=== PATIENT | male | born 1970 | race Caucasian/White ===

== ENCOUNTER 2020-08-04 10:20 | Emergency (ER) | payer MEDICAID ==
[~2020-08-04] VITALS: Ht 177.8 cm; Wt 68.2 kg
[~2020-08-04 10:20] MED LIST: ALBU8HFA PO
[2020-08-04 10:32] VITALS: BP 110/81
[2020-08-04] MEDS ORDERED: ketorolac trometh. 30mg/ml inj. IM ONE (11:15)
== END 2020-08-04 12:56 | disposition home or self-care (01) ==
LOC: ER 10:21
DX: M25.511 Pain in right shoulder (principal); M25.512 Pain in left shoulder; F17.200 Nicotine dependence, unspecified, uncomplicated; F12.10 Cannabis abuse, uncomplicated; Z59.0 Homelessness; W19.XXXA Unspecified fall, initial encounter; Y93.89 Activity, other specified; Y92.89 Other specified places as the place of occurrence of the external cause; Y99.8 Other external cause status
CPT/HCPCS: 73030; 73070; 73100; 73502; 96372; 99284; J1885

== ENCOUNTER 2020-12-25 10:07 | Emergency (ER) | payer MEDICAID ==
[~2020-12-25] VITALS: Ht 177.8 cm; Wt 65.8 kg
[2020-12-25 10:29] VITALS: BP 132/98
[2020-12-25] MEDS ORDERED: ceFAZolin 1gm IM kit IM ONE (11:05)
[2020-12-25] MEDS ORDERED: ketorolac trometh inj. 60 MG/2 ML VIAL IM ONE (11:05)
[2020-12-25] MEDS ORDERED: AMOX-580 PO (11:35)
[2020-12-25] MEDS ORDERED: SULF1TAB49 PO (11:35)
== END 2020-12-25 12:18 | disposition home or self-care (01) ==
LOC: ER 10:07
DX: L03.011 Cellulitis of right finger (principal); M79.641 Pain in right hand; F17.200 Nicotine dependence, unspecified, uncomplicated; F12.90 Cannabis use, unspecified, uncomplicated; Z72.89 Other problems related to lifestyle; Z59.0 Homelessness; Z98.890 Other specified postprocedural states; Z79.2 Long term (current) use of antibiotics
CPT/HCPCS: 73130; 96372; 99284; J0690; J1885

== ENCOUNTER 2021-07-09 17:09 | Emergency (ER) | payer MEDICAID ==
[~2021-07-09] VITALS: Ht 177.8 cm; Wt 85.0 kg
[2021-07-09] MEDS ORDERED: pantoprazole 40 MG vial IV ONE (17:25)
[2021-07-09] MEDS ORDERED: normal saline 1000ML IV soln IVB ONE (17:25)
[2021-07-09] MEDS ORDERED: LORazepam 2 mg/ml vial IV ONE (17:25)
[2021-07-09 17:52] LABS: HEMOGLOBIN 14.9 g/dl (14.0-17.9)
[2021-07-09 17:54] LABS: BASOPHILS # (AUTO) 0.1 X10'3 (0-0.2); BASOPHILS % (AUTO) 1.1 % (0-1); EOSINOPHILS # (AUTO) 0.3 X10'3 (0-0.9); EOSINOPHILS % (AUTO) 2.4 % (0-6); LYMPHOCYTES # (AUTO) 2.4 X10'3 (1.1-4.8); LYMPHOCYTES % (AUTO) 22.6 % (21-51); MEAN CORPUSCULAR HEMOGLOBIN 33.8 PG (27.0-31.0); MEAN CORPUSCULAR HGB CONC 34.7 g/dL (33.0-36.5); MEAN CORPUSCULAR VOLUME 97.3 FL (78-98); MEAN PLATELET VOLUME 7.5 FL (7.4-10.4); MONOCYTES # (AUTO) 0.9 X10'3 (0-0.9); MONOCYTES % (AUTO) 8.1 % (2-12); NEUTROPHILS # (AUTO) 6.9 X10'3 (1.8-7.7); NEUTROPHILS % (AUTO) 65.8 % (42-75); PLATELET COUNT 360 X10'3 (140-440); RED BLOOD COUNT 4.42 X10'6 (4.70-6.10); RED CELL DISTRIBUTION WIDTH 13.3 % (11.5-14.5); WHITE BLOOD COUNT 10.6 X10'3 (4.5-11.0)
[2021-07-09 18:04] LABS: ALANINE AMINOTRANSFERASE 26 U/L (12-78); ALBUMIN 3.7 G/DL (3.4-5.0); ALBUMIN/GLOBULIN RATIO 1.1 (1.1-1.5); ALKALINE PHOSPHATASE 89 IU/L (46-116); ANION GAP 9 (8-16); ASPARTATE AMINO TRANSFERASE 23 U/L (10-37); BILIRUBIN,TOTAL 0.3 MG/DL (0.1-1.0); BLOOD UREA NITROGEN 13 MG/DL (7-18); BUN/CREATININE RATIO 13.7 (5.4-32.0); CALCIUM 8.6 MG/DL (8.5-10.1); CHLORIDE 105 MMOL/L (99-107); CREATININE 0.95 MG/DL (0.60-1.10); GLUCOSE 113 MG/DL (70-104); LIPASE 105 U/L (73-393); POTASSIUM 3.9 MMOL/L (3.5-5.1); SODIUM 139 MMOL/L (135-145); TOTAL CARBON DIOXIDE 24.9 MMOL/L (24-32); TOTAL PROTEIN 7.2 G/DL (6.4-8.2); eGFR 84 ML/MIN
[2021-07-09] MEDS ORDERED: ONDA8TAB13 PO (18:48)
[2021-07-09] MEDS ORDERED: PANT-47 PO (18:48)
[2021-07-09 19:07] VITALS: BP 146/87
== END 2021-07-09 19:11 | disposition home or self-care (01) ==
LOC: ER 17:10
DX: K29.70 Gastritis, unspecified, without bleeding (principal); F17.210 Nicotine dependence, cigarettes, uncomplicated; Z59.00 Homelessness unspecified; Z79.899 Other long term (current) drug therapy
CPT/HCPCS: 36415; 80053; 83690; 85025; 96361; 96374; 96375; 99284; C9113; J2060; J7030

== ENCOUNTER 2022-06-03 19:03 | Emergency (ER) | payer MEDICAID ==
[~2022-06-03] VITALS: Ht 175.3 cm; Wt 56.0 kg
[~2022-06-03 19:03] MED LIST changes: +ONDA8TAB13 PO; +PANT-47 PO
[2022-06-03 19:47] VITALS: BP 127/84
[2022-06-03] MEDS ORDERED: CEPH-585 PO (20:15)
== END 2022-06-03 20:31 | disposition home or self-care (01) ==
LOC: ER 19:04
DX: S60.921A Unspecified superficial injury of right hand, initial encounter (principal); X58.XXXA Exposure to other specified factors, initial encounter; Y93.89 Activity, other specified; Y99.8 Other external cause status; Y92.89 Other specified places as the place of occurrence of the external cause; F12.10 Cannabis abuse, uncomplicated
CPT/HCPCS: 99283

== ENCOUNTER 2022-06-06 08:09 | Emergency (ER) | payer MEDICAID ==
[~2022-06-06] VITALS: Ht 172.7 cm; Wt 63.6 kg
[~2022-06-06 08:09] MED LIST changes: +CEPH-585 PO
--- NOTE | 2022-06-06 08:38 | NUR ---
pt is able to roll over in bed independently, reports pain with movement.
[2022-06-06] MEDS ORDERED: ketorolac trometh inj. 60 MG/2 ML VIAL IM ONE (09:15)
--- NOTE | 2022-06-06 09:30 | NUR ---
security called to bedside for pt discharge. pt placed into wheelchar by staff and escorted out of ed.
[2022-06-06 09:58] VITALS: BP 148/80
== END 2022-06-06 09:45 | disposition home or self-care (01) ==
LOC: ER 08:09
DX: M54.50 Low back pain, unspecified (principal); F12.90 Cannabis use, unspecified, uncomplicated; Z72.89 Other problems related to lifestyle; Z98.890 Other specified postprocedural states; Z59.00 Homelessness unspecified; Z79.2 Long term (current) use of antibiotics; Z79.899 Other long term (current) drug therapy
CPT/HCPCS: 96372; 99284; J1885